=== PATIENT | female | born 1970 | race Two or more races ===

== ENCOUNTER 2018-01-25 12:38 | Outpatient (CLI) | payer BC | END 2018-01-25 23:59 | disposition home or self-care (01) | LOC: WOU 12:38 | PROVIDERS: ATTEND Podiatrist Foot & Ankle Surgery | DX: S90.561D Insect bite (nonvenomous), right ankle, subsequent encounter (principal); M79.661 Pain in right lower leg; I10 Essential (primary) hypertension; W57.XXXD Bitten or stung by nonvenomous insect and other nonvenomous arthropods, subsequent encounter | CPT/HCPCS: 99205; A6402; Z7610; G0463 ==

== ENCOUNTER 2018-02-01 13:01 | Outpatient (CLI) | payer BC | END 2018-02-01 23:59 | disposition home health service (06) | LOC: WOU 13:01 | PROVIDERS: ATTEND Podiatrist Foot & Ankle Surgery | DX: S90.561D Insect bite (nonvenomous), right ankle, subsequent encounter (principal); W57.XXXD Bitten or stung by nonvenomous insect and other nonvenomous arthropods, subsequent encounter; M79.661 Pain in right lower leg; I10 Essential (primary) hypertension; J45.909 Unspecified asthma, uncomplicated | CPT/HCPCS: 97605-TC; A6402; Z7610 ==

== ENCOUNTER 2018-02-08 12:24 | Outpatient (CLI) | payer BC | END 2018-02-08 23:59 | disposition home health service (06) | LOC: WOU 12:24 | PROVIDERS: ATTEND Podiatrist Foot & Ankle Surgery | DX: S90.561S Insect bite (nonvenomous), right ankle, sequela (principal); L97.312 Non-pressure chronic ulcer of right ankle with fat layer exposed; M79.661 Pain in right lower leg; I10 Essential (primary) hypertension; W57.XXXS Bitten or stung by nonvenomous insect and other nonvenomous arthropods, sequela | CPT/HCPCS: A6253; A6402; G0463; Z7610 ==

== ENCOUNTER 2018-02-15 14:00 | Outpatient (CLI) | payer BC | END 2018-02-15 23:59 | disposition home health service (06) | LOC: WOU 14:00 | PROVIDERS: ATTEND Podiatrist Foot & Ankle Surgery | DX: S90.561S Insect bite (nonvenomous), right ankle, sequela (principal); L97.312 Non-pressure chronic ulcer of right ankle with fat layer exposed; M79.661 Pain in right lower leg; I10 Essential (primary) hypertension; J45.909 Unspecified asthma, uncomplicated; X58.XXXS Exposure to other specified factors, sequela | CPT/HCPCS: 99213; A6253; A6402; Z7610; G0463 ==

== ENCOUNTER 2018-02-25 12:39 | Outpatient (CLI) | payer BC | END 2018-02-25 23:59 | disposition home health service (06) | LOC: WOU 12:39 | PROVIDERS: ATTEND Podiatrist Foot & Ankle Surgery | DX: Z48.817 Encounter for surgical aftercare following surgery on the skin and subcutaneous tissue (principal); T63.301D Toxic effect of unspecified spider venom, accidental (unintentional), subsequent encounter; I10 Essential (primary) hypertension; J45.909 Unspecified asthma, uncomplicated; M79.661 Pain in right lower leg | CPT/HCPCS: 99214; A6253; A6402 ×2; Z7610; G0463 ==

== ENCOUNTER 2018-03-04 13:54 | Outpatient (CLI) | payer BC | END 2018-03-04 23:59 | disposition home health service (06) | LOC: WOU 13:54 | PROVIDERS: ATTEND Podiatrist Foot & Ankle Surgery | DX: Z48.817 Encounter for surgical aftercare following surgery on the skin and subcutaneous tissue (principal); M79.661 Pain in right lower leg; I10 Essential (primary) hypertension; J45.909 Unspecified asthma, uncomplicated | CPT/HCPCS: A6253; A6402; G0463; Z7610 ==

== ENCOUNTER 2018-03-25 13:00 | Outpatient (CLI) | payer BC | END 2018-03-25 23:59 | disposition home health service (06) | LOC: WOU 13:00 | PROVIDERS: ATTEND Podiatrist Foot & Ankle Surgery | DX: Z48.817 Encounter for surgical aftercare following surgery on the skin and subcutaneous tissue (principal); M79.661 Pain in right lower leg; I10 Essential (primary) hypertension; J45.909 Unspecified asthma, uncomplicated | CPT/HCPCS: 99214; A6402 ×2; Z7610; G0463 ==

== ENCOUNTER 2018-04-08 09:50 | Outpatient (CLI) | payer BC | END 2018-04-08 23:59 | disposition home health service (06) | LOC: WOU 09:50 | PROVIDERS: ATTEND Podiatrist Foot & Ankle Surgery | DX: Z09 Encounter for follow-up examination after completed treatment for conditions other than malignant neoplasm (principal); M79.661 Pain in right lower leg; I10 Essential (primary) hypertension; J45.909 Unspecified asthma, uncomplicated | CPT/HCPCS: A6402; G0463; Z7610 ==